=== PATIENT | male | born 1965 | race Caucasian/White ===

== ENCOUNTER 2020-02-14 08:58 | Outpatient (CLI) | payer BC ==
[2020-02-14] MEDS ORDERED: BARIUM SULFATE 135 ML SUSP.RECON (E-Z-HD) PO ONE (09:29)
== END 2020-02-14 20:46 | disposition home or self-care (01) ==
LOC: SRD 08:58
PROVIDERS: ATTEND Otolaryngology Plastic Surgery within the Head & Neck
DX: K21.9 Gastro-esophageal reflux disease without esophagitis (principal)
CPT/HCPCS: 74220-TC